=== PATIENT | male | born 1960 | race Caucasian/White ===

== ENCOUNTER 2019-08-25 10:12 | Outpatient (CLI) | payer OTHER, SELFPAY ==
--- NOTE | ~2019-08-25 | CT_ITS ---
EXAMINATION: CT lumbar spine wo con DATE: 08/25/2019 10:43 INDICATION: Spondylolisthesis at L5-S1. TECHNIQUE: Computed tomography (CT) of the lumbar spine was performed without intravenous contrast. A utomated exposure control and iterative reconstruction technique were employed. The dose-length produ ct was 456.78 mGy-cm. COMPARISON: Lumbar spine radiograph 08/25/2019 FINDINGS: There is 8 degrees dextrocurvature of lumbar spine. There are chronic bilateral L5 pars def ects. There is 3 mm anterolisthesis of L5 on S1 and 3 mm retrolisthesis of L4 on L5. Vertebral body h eights are normal. There is mildly decreased disc height at L1-L2, moderately decreased disc height a t L4-L5, and severely decreased disc height at L5-S1. The following disc levels are specifically disc ussed: L1-L2: The disc is bulging. There is moderate right and mild left facet joint osteoarthritis. There i s no neural foraminal stenosis. There is mild central canal stenosis. L2-L3: The disc does not extend beyond the endplate margin. There is mild bilateral facet joint osteo arthritis. There is no neural foraminal stenosis. There is no central canal stenosis. L3-L4: The disc is bulging. There is mild bilateral facet joint osteoarthritis. There is mild bilater al neural foraminal stenosis. There is mild central canal stenosis. L4-L5: The disc is bulging. There is mild bilateral facet joint osteoarthritis. There is mild bilater al neural foraminal stenosis. There is mild central canal stenosis. L5-S1: The disc is bulging. There is mild bilateral facet joint osteoarthritis. There is moderate rig ht and mild left neural foraminal stenosis. There is mild central canal stenosis. IMPRESSION: 1. Severe lower lumbar spondylosis. 2. Chronic bilateral L5 pars defects with grade 1 anterolisthesis of L5 on S1. Reviewed, dictated and finalized at location A.
--- NOTE | ~2019-08-25 | XR_ITS ---
XR lumbar spine 2-3V 08/25/2019 10:35 Indication: Spondylolisthesis at L5-S1. Procedure: 3 views lumbar spine Comparison: 12/16/2018 Findings: There is disc narrowing at L4-5 and L5-S1. There is grade 1 spondylolisthesis at L5-S1 seco ndary to bilateral spondylolysis. There is dextroscoliosis centered at L3. Sacral foramen are symmetr ic. Impression: 1: Mild lumbar spondylosis with grade 1 spondylolisthesis at L5-S1. 2: Mild dextroscoliosis of the lumbar spine centered at L3. Reviewed, dictated and finalized at location A. Impression: 1: Mild lumbar spondylosis with grade 1 spondylolisthesis at L5-S1. 2: Mild dextroscoliosis of the lumbar spine centered at L3.
== END 2019-08-25 10:13 | disposition home or self-care (01) ==
LOC: ANHIMG 10:21
PROVIDERS: PCP Family Medicine; Visit Provider Neurological Surgery
DX: M43.17 Spondylolisthesis, lumbosacral region (principal); M47.896 Other spondylosis, lumbar region
CPT/HCPCS: 72100; 72131

== ENCOUNTER 2019-10-19 11:47 | Outpatient (CLI) | payer OTHER, SELFPAY ==
--- NOTE | ~2019-10-19 | US_ITS ---
EXAMINATION: US venous doppler [facility] EXAM DATE: 10/19/2019 12:27 INDICATION: Left calf pain. TECHNIQUE: Multiple grayscale, color flow and Doppler images of the left lower extremity deep venous system were obtained and reviewed. There is no prior study for comparison. FINDINGS: The left common femoral, femoral and profunda veins demonstrate normal color flow, respirat ory variation, augmentation and compressibility. Compressibility, color flow confirmed within the le ft popliteal, posterior tibial, peroneal, and greater saphenous veins. IMPRESSION: 1. No left lower extremity deep venous thrombosis. Reviewed, dictated and finalized at location A.
== END 2019-10-19 11:48 | disposition home or self-care (01) ==
LOC: ANHIMG 11:53
PROVIDERS: PCP Family Medicine; Visit Provider Neurological Surgery
DX: M79.662 Pain in left lower leg (principal)
CPT/HCPCS: 93971

== ENCOUNTER → 2019-10-26 07:51 | Outpatient (CLI) | payer OTHER, SELFPAY ==
--- NOTE | ~2019-10-26 | XR_ITS ---
XR lumbar spine 2-3V DATE: 10/26/2019 08:06 INDICATION: Spondylolisthesis at L5-S1 TECHNIQUE: Standing AP, lateral and coned lateral lumbosacral views COMPARISON: 08/25/2019 CT lumbar spine FINDINGS: Osteopenia. There is rotatory dextroscoliosis of the lower thoracic and lumbar spine. There is interval postoperative change including L5 laminectomy and posterior and interbody spinal fu emily at L5-S1. Again noted is grade 1 anterolisthesis at L5-S1 secondary to bilateral L5 pars interar ticularis defects documented 08/25/2019 CT lumbar spine examination. No interval fracture or bone destruction is noted compared to 08/25/2019. The sacroiliac joints are intact. IMPRESSION: Status post posterior and interbody spinal fusion at L5-S1 since 08/25/2019 Reviewed, dictated and finalized at location B.
== END ==
PROVIDERS: Visit Provider Neurological Surgery
DX: Z98.1 Arthrodesis status (principal)
CPT/HCPCS: 72100

== ENCOUNTER → 2019-11-20 10:32 | Outpatient (CLI) | payer OTHER, SELFPAY ==
--- NOTE | ~2019-11-20 | XR_ITS ---
EXAMINATION: XR shoulder LT min 2V DATE: 11/20/2019 11:24 INDICATION: Left shoulder swelling. TECHNIQUE: 4 views of left shoulder were obtained. COMPARISON: None. FINDINGS: Bone alignment is normal. No fracture. Glenohumeral joint is normal. There is moderate acro mioclavicular joint osteoarthritis. IMPRESSION: 1. Moderate left acromioclavicular joint osteoarthritis. Reviewed, dictated and finalized at location B.
--- NOTE | ~2019-11-20 | XR_ITS ---
XR_CERV2-3V_CR 11/20/2019 11:24 Indication: Neck pain Procedure: 3 views cervical spine Comparison: No prior studies for comparison. Findings: Normal cervical lordosis. No prevertebral soft tissue swelling. No fracture or traumatic ma lalignment. There is mild multilevel facet and uncinate hypertrophy. Lung apices are normal. Odontoid process not well visualized. Impression: 1: Mild cervical spondylosis. Reviewed, dictated and finalized at location A. Impression: 1: Mild cervical spondylosis.
== END ==
PROVIDERS: PCP Family Medicine; Visit Provider Family Medicine
DX: M79.89 Other specified soft tissue disorders (principal); M19.012 Primary osteoarthritis, left shoulder; M47.892 Other spondylosis, cervical region
CPT/HCPCS: 72040; 73030

== ENCOUNTER 2019-11-25 06:44 | Outpatient (RCR) | payer OTHER, SELFPAY ==
[2019-11-24 07:50] LABS: Hematocrit 22.2 % (42.0-52.0)
[2019-11-25] VITALS (9 sets, daily range): BP systolic 109–127; BP diastolic 65–81; PULSE 71–80; RESP 14–18; TEMP 36.1–36.6; O2SAT 99–100
== END 2020-02-22 23:59 | disposition home or self-care (01) ==
LOC: ANHCPCTRAN 06:44
PROVIDERS: PCP Family Medicine; Visit Provider Physician Assistant
DX: D64.9 Anemia, unspecified (principal)
CPT/HCPCS: 36415; 36430; 85014; 85018; 86850; 86900; 86901; 86920; P9016

== ENCOUNTER → 2019-11-27 09:24 | Outpatient (CLI) | payer OTHER, SELFPAY ==
--- NOTE | ~2019-11-27 | XR_ITS ---
EXAMINATION: XR lumbar spine 2-3V DATE: 11/27/2019 10:00 INDICATION: Lumbar spinal fusion TECHNIQUE: Anteroposterior and lateral views of the lumbar spine, and cone-down lateral view of the l umbosacral junction were obtained. COMPARISON: 10/26/2019 FINDINGS: Again noted are changes of anterior and posterior fusion at L5-S1. Vertebral body alignment is normal. There is mild loss of intervertebral disc space height at L4-5. The vertebral body height s are maintained. Small degenerative osteophytes project from the anterior endplates of multiple vert ebral bodies. IMPRESSION: 1. Changes of anterior and posterior fusion and mild lumbar spondylosis without acute findings or sig nificant interval change. Reviewed, dictated and finalized at location A. IMPRESSION: 1. Changes of anterior and posterior fusion and mild lumbar spondylosis without acute findings or significant interval change.
== END ==
PROVIDERS: PCP Family Medicine; Visit Provider Neurological Surgery
DX: Z98.1 Arthrodesis status (principal)
CPT/HCPCS: 72100

== ENCOUNTER 2019-12-24 13:49 | Outpatient (CLI) | payer OTHER, SELFPAY ==
[2019-12-24 14:07] LABS: Basophils Absolute Auto 0.1 K/mm3 (0.0-0.1); Basophils Percent Auto 0.5 % (0.2-1.2); Eosinophils Absolute Auto 0.1 K/mm3 (0-0.3); Eosinophils Percent Auto 1.2 % (0-4.4); Hematocrit 32.8 % (42.0-52.0); Hemoglobin 10.4 g/dL (14.0-18.0); Immature Granulocyte Absolute 0.07 K/mm3 (0.00-0.031); Immature Granulocyte Percent A 0.6 % (0-0.5); Immature Reticulocyte Fraction 24.6 % (3.0-15.9); Lymphocytes Absolute Auto 2.47 K/mm3 (0.9-3.2); Mean Corpuscular HGB Conc 31.7 g/dl (32-36); Mean Corpuscular Hemoglobin 27.7 pg (26-34); Mean Corpuscular Volume 87.5 fl (80-100); Mean Platelet Volume 8.5 fl (7.4-10.4); Monocytes Absolute Auto 1.4 K/mm3 (0.1-0.6); Monocytes Percent Auto 12.7 % (2.6-8.5); Neutrophils Absolute Auto 7.1 K/mm3 (1.3-6.7); Platelet Count Result 424 k/mm3 (150-375); Red Blood Count 3.75 M/mm3 (4.6-6.20); Red Cell Distribution Width 18.7 % (11.5-14.5); Reticulocyte Hemoglobin Conten 30.7 pg (28.2-35.7); Reticulocyte Percent 2.06 % (0.7-4.3); Reticulocytes Absolute 0.08 B/L (32.2-175.7); White Blood Count 11.2 K/mm3 (4.5-10.0)
[2019-12-24 16:55] LABS: Iron 46 ug/dL (49-181)
[2019-12-24 16:57] LABS: Alanine Aminotransferase 20 U/L (4-50); Albumin Level 4.3 g/dL (3.5-5.1); Alkaline Phosphatase 91 U/L (38-126); Anion Gap 7 mmol/L (8-16); Aspartate Amino Transferase 33 U/L (17-59); Bilirubin,Total 0.5 mg/dL (0.2-1.3); Blood Urea Nitrogen 8 mg/dL (9-20); Calcium 9.7 mg/dL (8.4-10.2); Carbon Dioxide 27 mmol/L (22-30); Chloride 95 mmol/L (98-107); Estimated Glomerular Filt Rate > 60; Glucose 91 mg/dL (75-110); Potassium 4.7 mmol/L (3.4-5.0); Sodium 129 mmol/L (137-145)
[2019-12-24 17:05] LABS: Percent Iron Saturation 10 % (20-50)
[2019-12-24 18:02] LABS: Folic Acid 18.6 ng/mL (2.76->20)
== END 2019-12-24 13:50 | disposition home or self-care (01) ==
LOC: ANHLAB 13:51
PROVIDERS: PCP Family Medicine; Visit Provider Internal Medicine Hematology & Oncology
DX: D64.9 Anemia, unspecified (principal)
CPT/HCPCS: 36415; 80053; 82607; 82728; 82746; 83540; 83550; 85025; 85046

== ENCOUNTER → 2020-02-05 10:35 | Outpatient (CLI) | payer OTHER, SELFPAY ==
--- NOTE | ~2020-02-05 | XR_ITS ---
XR lumbar spine 2-3V DATE: 02/05/2020 11:49 INDICATION: Post lumbar spinal fusion TECHNIQUE: AP, lateral, coned lateral lumbosacral views COMPARISON: 11/2019 lumbar spine 8. 5 05/2019 lumbar spine FINDINGS: Status post L5 laminectomy and posterior and interbody spinal fusion at L5-S1. Stable mild grade 1 anterolisthesis at L5-S1. There is mild dextroscoliosis of the lumbar spine. There is osteopenia. No fracture or bone destruction of the lumbar spine is evident. The included lower thoracic and lumba r pedicles are intact. There is moderately prominent degenerative disc disease at L1-2 and L4-5, mild degenerative disc dise ase at L2-3, L3-4.. The sacroiliac joints appear normal. IMPRESSION: L5 laminectomy. 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 Posterior and interbody spinal fusion at L5-S1 Stable grade 1 anterolisthesis at L5-S1 Moderate degenerative disc disease at L1-2 and L4-5, mild degenerative disc dis ease at the remaining lumbar interspaces Osteopenia
== END ==
PROVIDERS: Visit Provider Neurological Surgery
DX: Z98.1 Arthrodesis status (principal); M85.88 Other specified disorders of bone density and structure, other site; M51.36 Other intervertebral disc degeneration, lumbar region
CPT/HCPCS: 72100

== ENCOUNTER 2020-03-12 01:51 | Outpatient (CLI) | payer OTHER, SELFPAY ==
[2020-03-12 18:58] LABS: SARS-CoV-2 RNA PCR Negative
== END 2020-03-12 01:52 | disposition home or self-care (01) ==
LOC: ANHCOVIDDT 01:51
PROVIDERS: PCP Physician Assistant; Visit Provider Internal Medicine Gastroenterology
DX: Z01.818 Encounter for other preprocedural examination (principal); Z20.828 Contact with and (suspected) exposure to other viral communicable diseases
CPT/HCPCS: 87635; C9803; U0003

== ENCOUNTER 2020-03-15 01:51 | Day surgery (SDC) | payer OTHER, SELFPAY ==
[2020-03-10 08:46] VITALS: BMI 26.6
[2020-03-15 11:51] VITALS: BP 143/89; PULSE 99; RESP 18; TEMP 37.1; O2SAT 100
--- NOTE | 2020-03-15 11:55 | WPDANESEPPF ---
Anes - Initial Pre Proc Eval Procedure: Operation Date: 03/15/20 13:45 Proposed Procedures p Esophagogastroduodenoscopy & Colonoscopy - Jeronimo Mistry MD Date/Time: 03/15/20 11:55 Surgeon: Jeronimo Mistry MD Pre Op Diagnosis: Anemia/ Dark Stools Patient Data Age: 60 Gender: M Height: 1.75 m Weight: 82 kg Allergies Allergy/AdvReac Type Severity Reaction Status Date / Time No Known Drug Allergies Allergy Unknown none Verified 03/15/20 11:50 peanut Allergy Unknown Swelling Verified 03/15/20 11:50 of Lip/Tongue/Throat Home Medications Medication Instructions Recorded Confirmed Type montelukast 10 mg tablet 10 mg PO DAILY #30 tablet 05/07/19 03/10/20 Rx amlodipine 5 mg tablet 5 mg PO DAILY #90 tablet 12/11/19 03/10/20 Rx allopurinol 100 mg tablet 100 mg PO DAILY #90 tablet 12/24/19 03/10/20 Rx sodium,potassium,mag sulfates 17.5 354 ml PO .COMPLEX #354 ml 02/17/20 03/10/20 Rx gram-3.13 gram-1.6 gram oral soln Patient hx anesthesia problems: none Family hx anesthesia problems: none PMFSH Past Medical History Medical History (Updated 03/14/20 @ 09:58 by Nael Garcia DO) Chronic right-sided low back pain with right-sided sciatica Essential hypertension Macrocytic anemia Psoriasis Right knee pain Surgical History Surgical History (Updated 03/14/20 @ 09:58 by Nael Garcia DO) History of spinal surgery Family History Family History Father Hypertension Social History Social History Social History: Smoking packs per day: 1 Smoking cigarettes per day: 20.0 Years smoked: 40 Smoking pack-years: 40.00 Smoking status: Current every day smoker Tobacco type: cigarettes Second hand tobacco smoke exposure: Yes Alcohol intake: current Drinks per week: 21 Substance use: never Substance use type: does not use Living arrangements: alone Gender identity (if verbalized by the patient): Male Spiritual care concerns: No Anes - Eval Final PreProcedure Day of Procedure 03/15/20 11:55 Patient weight: overweight Heart: regular rate and rhythm Lungs: clear to auscultation and normal air movement Airway: Mallampati scale class III Neurological: alert and oriented Last oral intake: >/= 8 hours ASA classification: III Emergent: no Anesthetic plan: proceed Anesthesia type and monitoring: general GIVS and standard monitoring Informed Consent: The patient's anesthetic plan and its attendant risks and benefits were discussed with the patient/family/POA. Questions were solicited and answers provided to the satisfaction of the patient/family/POA.
[2020-03-15] MEDS: LACTATED RINGERS 1,000 ML 150 ML IV CONT (11:58)
--- NOTE | 2020-03-15 12:33 | PM.HPGS ---
History of Present Illness History of Present Illness Consent: Risks, benefits, and alternatives have been discussed and questions answered. Patient agrees to proceed with procedure. Chief complaint: Anemia/ Dark Stools Narrative: Noble Howard is a 60 year old male with melena and NILA after taking pain meds because back surgery few months ago, last colonoscopy 10 years ago. Review of Systems Constitutional: Constitutional: Denies headache(s) and Denies weakness Eyes: Eyes: Denies blurry vision ENT: Reports Normal hearing present, Denies headache(s) and Denies neck pain Cardiovascular: Cardiovascular: Denies chest pain and Denies dyspnea Respiratory: Respiratory: Denies dyspnea Gastrointestinal: Gastrointestinal: Reports no additional gastrointestinal complaints Genitourinary: Genitourinary: Denies dysuria Musculoskeletal: Musculoskeletal: Denies neck pain Integumentary/Breasts: Skin/Breast: Denies dry skin Neurologic: Reports Normal hearing present, Denies headache(s) and Denies weakness Psychiatric: Psychiatric: Denies anxiety Endocrine: Endocrine: Denies change in body appearance Hematologic/Lymphatic: Hematologic/Lymphatic: Denies easy bleeding Allergic/Immunologic: Allergic/Immunologic: Denies urticaria PMFSH Past Medical History Medical History (Updated 03/15/20 @ 12:34 by Jeronimo Mistry MD) Chronic right-sided low back pain with right-sided sciatica Essential hypertension Macrocytic anemia Melena Psoriasis Right knee pain Surgical History Surgical History (Updated 03/14/20 @ 09:58 by Nael Garcia DO) History of spinal surgery Family History Family History Father Hypertension Social History Social History Social History: Smoking packs per day: 1 Smoking cigarettes per day: 20.0 Years smoked: 40 Smoking pack-years: 40.00 Smoking status: Current every day smoker Tobacco type: cigarettes Second hand tobacco smoke exposure: Yes Alcohol intake: current Drinks per week: 21 Substance use: never Substance use type: does not use Living arrangements: alone Gender identity (if verbalized by the patient): Male Spiritual care concerns: No Meds Home Medications and Allergies Home Medications Medication Instructions Recorded Confirmed Type montelukast 10 mg tablet 10 mg PO DAILY #30 tablet 05/07/19 03/10/20 Rx amlodipine 5 mg tablet 5 mg PO DAILY #90 tablet 12/11/19 03/10/20 Rx allopurinol 100 mg tablet 100 mg PO DAILY #90 tablet 12/24/19 03/10/20 Rx sodium,potassium,mag sulfates 17.5 354 ml PO .COMPLEX #354 ml 02/17/20 03/10/20 Rx gram-3.13 gram-1.6 gram oral soln Allergies Allergy/AdvReac Type Severity Reaction Status Date / Time No Known Drug Allergies Allergy Unknown none Verified 03/15/20 11:50 peanut Allergy Unknown Swelling Verified 03/15/20 11:50 of Lip/Tongue/Throat Vital Signs Vital Signs - 24 hr 03/15/20 11:51 Temperature 98.8 F Pulse Rate 99 Respiratory Rate 18 Blood Pressure 143/89 H Pulse Oximetry 100 Exam Const: General: comfortable and no acute distress HENMT: General nose exam: Normal nares present Eyes: General: appearance normal, both eyes and all related structures Neck: Neck: no JVD Resp: Auscultation: clear to auscultation bilaterally Cardio: Rate: regular rate Rhythm: regular rhythm GI: Inspection: non-distended GI Palp: Yes Soft to palpation Skin: General skin exam: normal color Neuro: General: gait normal Speech: normal speech Extrem: General: normal to inspection Psych: Mental Status: mental status grossly normal Assessment and Plan Assessment and plan (1) Melena: Code(s): K92.1 - Melena Status: Acute Assessment and Plan: egd with bx (2) Anemia: Code(s): D64.9 - Anemia, unspecified Status
--- NOTE | 2020-03-15 13:09 | SUR.OPER ---
EGD START 1245, END 1254 COLONOSCOPY START 1258, END 1306
[2020-03-15 13:10] VITALS: BP 113/79; PULSE 76; RESP 16; O2SAT 98
[2020-03-15 13:20] VITALS: BP 129/87; PULSE 74; RESP 18; O2SAT 98
[2020-03-15 13:30] VITALS: BP 132/85; PULSE 73; RESP 16; O2SAT 99
== END 2020-03-15 13:54 | disposition home or self-care (01) ==
PROVIDERS: PCP Physician Assistant; Visit Provider Internal Medicine Gastroenterology
PROC: 0DJ08ZZ Inspection of Upper Intestinal Tract, Via Natural or Artificial Opening Endoscopic (ICD-10-PCS; CPT 43235; principal; 2020-03-15 13:45)
DX: D50.0 Iron deficiency anemia secondary to blood loss (chronic) (principal); K31.5 Obstruction of duodenum; K29.70 Gastritis, unspecified, without bleeding; K64.8 Other hemorrhoids; K92.1 Melena; I10 Essential (primary) hypertension; D53.9 Nutritional anemia, unspecified; L40.9 Psoriasis, unspecified; F17.210 Nicotine dependence, cigarettes, uncomplicated
CPT/HCPCS: 43239; 43245; 45378; 88305; C1726; J2704; J7120

== ENCOUNTER → 2020-05-18 08:54 | Outpatient (CLI) | payer OTHER, SELFPAY ==
--- NOTE | ~2020-05-18 | MR_ITS ---
EXAMINATION: MR lumbar spine wo/w con EXAM DATE: 05/18/2020 09:48 INDICATION: History lumbar fusion, radiculopathy. Low back and right leg pain. TECHNIQUE: Multi-sequential, multiplanar MR images of the lumbar spine were obtained without contrast . Sagittal T1, T2, T2 fat saturation images. Axial T2 weighted images. Axial T1 weighted sequence. Patient was then injected with 15 mL Multihance intravenous contrast and reimaged. Postcontrast axi al and sagittal T1-weighted fat saturation sequences were obtained. Comparison is made to prior exami nation from 01/27/2019. FINDINGS: Interval posterior, interbody fusion L5-S1 and grade 1 anterolisthesis position. There is m ild to moderate loss of the L4-5 disc height with 2 mm retrolisthesis. Mild disc disease other thorac olumbar levels. There are scattered focal signal abnormalities consistent with hemangiomata, otherwis e without focal suspicious marrow signal abnormalities. The conus medullaris terminates at the L1/2 l evel and has normal signal intensity and morphology. There are no areas of abnormal enhancement on t he post contrast images. Level by level evaluation: T12-L1: Disc does not extend beyond the endplate margin. Facet arthropathy: Mild. Neural foraminal stenosis: No stenosis. Central canal stenosis: No stenosis. L1-L2: There is a mild diffuse disc bulge. Facet arthropathy: Mild. Neural foraminal stenosis: No stenosis. Central canal stenosis: No stenosis. L2-L3: There is a mild diffuse disc bulge. Facet arthropathy: Mild. Neural foraminal stenosis: No stenosis. Central canal stenosis: No stenosis. L3-L4: There is a mild diffuse disc bulge. Facet arthropathy: Mild. Neural foraminal stenosis: No stenosis. Central canal stenosis: No stenosis. L4-L5: There is a mild to moderate diffuse disc bulge. Facet arthropathy: Mild to moderate. Neural foraminal stenosis: Mild to moderate bilateral. Central canal stenosis: No stenosis. L5-S1: This level is fused. Facet arthropathy: Poorly visualized. Neural foraminal stenosis: Moderate to severe right, moderate left. Central canal stenosis: Posterior decompression. Aside from the fusion, no appreciable interval change in exam. IMPRESSION: 1. Interval L5-S1 fusion. 2. L5-S1 Moderate to severe right, moderate left neural foraminal stenosis. 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
[2020-05-18 09:21] LABS: Estimated Glomerular Filt Rate > 60
== END ==
PROVIDERS: PCP Family Medicine; Visit Provider Nurse Practitioner Family
DX: Z98.1 Arthrodesis status (principal)
CPT/HCPCS: 72158; A9577

== ENCOUNTER → 2020-06-15 08:37 | Outpatient (CLI) | payer OTHER, SELFPAY ==
--- NOTE | ~2020-06-15 | XR_ITS ---
XR lumbar spine min 4V 06/15/2020 09:07 Indication: Spondylolisthesis at L5-S1 Procedure: 5 views of the lumbar spine Comparison: Comparison to multiple prior studies sequentially, with oldest reviewed study dated 04/2019. Findings: Status post posterior fusion at L5-S1. There is a prosthetic disc device located along the anterior aspect of the disc space, unchanged from prior examinations. Pedicle screws appear intact. T here is disc narrowing at L4-5 and L5-S1 without significant change. There is grade 1 spondylolisthes is at L5-S1, stable there are laminectomy changes at L5. Mild dextrocurvature of the lumbar spine. Os teopenia. Sacroiliac joints are symmetric. Impression: 1: Stable appearance to lumbar spine. Stable surgical changes with fusion at L5-S1. No significant ch elaine to alignment with persistent grade 1 spondylolisthesis at L5-S1. Reviewed, dictated and finalized at location A. Impression: 1: Stable appearance to lumbar spine. Stable surgical changes with fusion at L5 -S1. No significant change to alignment with persistent grade 1 spondylolisthes is at L5-S1.
--- NOTE | ~2020-06-15 | CT_ITS ---
EXAMINATION: CT lumbar spine wo [facility] EXAM DATE: 06/15/2020 09:07 INDICATION: Spondylolisthesis L5-S1. Low back and right leg pain. Status post lumbar spine fusion 09/23. TECHNIQUE: Spiral CT of the lumbar spine was performed without contrast. Axial, coronal and sagittal images were reviewed. The dose-length product (DLP) for this examination was 703.80 mGy-cm. The e xposure was tailored according to patient size (auto mA exposure control), and iterative reconstructi on (ASIR) was used as additional dose reduction technique. Comparison is made to prior examination fr 08/25/2019. FINDINGS: There is L5-S1 posterior and interbody fusion, in grade 1 anterolisthesis, about 4 mm. Mil d to moderate disc disease at L4-5 with 2 mm retrolisthesis. Mild disc disease at the other lumbar le vels. L5 laminectomies. No evidence of lucency surrounding the screws. No solid bone bridging of the interbody device. There are no acute fractures identified. Paraspinal soft tissue is unremarkable. In cidental note made of mild sigmoid diverticulosis. Mild lumbar dextroscoliosis. Level by level evaluation: T12-L1: There is a minimal diffuse disc bulge. Facet arthropathy: None. Neural foraminal stenosis: No stenosis. Central canal stenosis: No stenosis. L1-L2: There is a mild diffuse disc bulge. Facet arthropathy: Mild. Neural foraminal stenosis: No stenosis. Central canal stenosis: Minimal. L2-L3: There is a mild diffuse disc bulge. Facet arthropathy: Mild. Neural foraminal stenosis: No stenosis. Central canal stenosis: Minimal. L3-L4: There is a mild diffuse disc bulge. Facet arthropathy: Mild to moderate. Neural foraminal stenosis: Mild bilateral. Central canal stenosis: Mild. L4-L5: Probably mild to moderate disc bulge. Facet arthropathy: Mild to moderate. Neural foraminal stenosis: Moderate right, mild to moderate left. Central canal stenosis: No stenosis. L5-S1: This level is fused. Facet arthropathy: Facetectomies. Neural foraminal stenosis: Moderate to severe bilateral, right greater than left. Central canal stenosis: Posterior decompression. The fusion hardware, L5 laminectomies and facetectomies new compared to prior study. Grade 1 anteroli sthesis appears unchanged. Difficult appreciate any significant interval change in the other lumbar f indings reported above. IMPRESSION: Intact L5-S1 fusion and grade 1 anterolisthesis. Moderate to severe bilateral neural fora yi stenosis at this level. Reviewed, dictated and finalized at location A. IMPRESSION: Intact L5-S1 fusion and grade 1 anterolisthesis. Moderate to severe bilateral neural foraminal stenosis at this level.
== END ==
PROVIDERS: PCP Family Medicine; Visit Provider Neurological Surgery
DX: M43.17 Spondylolisthesis, lumbosacral region (principal); Z98.1 Arthrodesis status
CPT/HCPCS: 72110; 72131

== ENCOUNTER → 2022-01-09 08:10 | Outpatient (CLI) | payer OTHER, SELFPAY ==
--- NOTE | ~2022-01-09 | CT_ITS ---
EXAMINATION: CT lung screening DATE: 01/09/2022 08:25 INDICATION: Personal history of nicotine dependence TECHNIQUE: Computed tomography (CT) of the chest was performed without intravenous contrast. Addition al 3D reconstructions utilizing coronal maximum intensity projection (MIP) were performed. Automated exposure control and iterative reconstruction technique were employed. The dose-length product was 73 .29 mGy-cm. COMPARISON: 04/12/2019 FINDINGS: A few <4 mm pleural-based nodules at the dependent apices of the lungs likely related to biapical ple ural-parenchymal scarring. Small calcified left lower lobe nodule consistent with old granulomatous d isease. No pneumonia, pulmonary edema or pleural effusion. Heart size is normal. Atherosclerotic rahel nary artery calcific lesion. No pericardial effusion. Thoracic aorta is normal in caliber. No patholo gically enlarged thoracic lymphadenopathy. 1.3 cm low-attenuation cyst at the upper pole of the left kidney. Moderate lower cervical and mild thoracic spondylosis. IMPRESSION: 1. . Lung-RADS category 2: Benign appearance or behavior. Continue annual screening with noncontrast low-dose chest CT in 12 months. Reviewed, dictated and finalized at location A. IMPRESSION: 1. . Lung-RADS category 2: Benign appearance or behavior. Continue annual scree luiz with noncontrast low-dose chest CT in 12 months.
== END ==
PROVIDERS: PCP Family Medicine; Visit Provider Nurse Practitioner Family
DX: Z12.2 Encounter for screening for malignant neoplasm of respiratory organs (principal); Z87.891 Personal history of nicotine dependence
CPT/HCPCS: 71271

== ENCOUNTER 2023-10-28 01:55 | Emergency (ER) | payer OTHER, SELFPAY ==
--- NOTE | ~2023-10-28 | CT_ITS ---
Non-contrast Head CT History: Head injury Technique: Axial non-contrast imaging of the brain was performed. Dose reduction technique was used on this scan by utilizing automated exposure control and iterative reconstruction technique. The dose -length product (DLP) was 681.00 mGy-cm. Findings: There is no evidence of intracranial hemorrhage, mass lesion, or acute infarct. Brain par enchyma appears normal. The ventricles and subarachnoid spaces are normal in size. The calvarium ap pears normal. The visualized paranasal sinuses and mastoid air cells are clear. Impression: No significant abnormality seen. Reviewed, dictated and finalized at location . Impression: No significant abnormality seen.
--- NOTE | ~2023-10-28 | CT_ITS ---
Noncontrast CT scan of the cervical spine Technique: Multiple contiguous axial [address] images of the cervical spine were obtained and rec onstructed in 2D sagittal and coronal planes on the acquisition scanner. Dose reduction technique was used on this scan by utilizing automated exposure control, adjustment of the mA and/or kV according to patient size. The dose-length product (DLP) was 391.46 mGy-cm. Clinical History: Pain Findings: No fractures or dislocations. There is moderate to advanced degenerative disc narrowing at C4-C5, C5-C6, and C6-C7. There is left neural foraminal narrowing at C3-C4. There is bilateral neura l foraminal narrowing at C4-C5, C5-C6, and probably C6-C7. No prevertebral soft tissue swelling. Impression: No fracture or subluxation of the cervical spine. Degenerative spondylosis, as above. Reviewed, dictated and finalized at [facility]. Impression: No fracture or subluxation of the cervical spine. Degenerative spondylosis, as above.
[2023-10-28 02:00] VITALS: BP 130/80; PULSE 78; RESP 16; TEMP 36.6; O2SAT 99
--- NOTE | 2023-10-28 03:10 | ED.GENADULT ---
HPI - General Adult General Chief complaint: Fall Stated complaint: Fall, lac, etoh Time Seen by Provider: 10/28/23 03:03 History of Present Illness HPI narrative: patient's 7-year-old gentleman who presents emergency department with chief complaint of scalp laceration. Patient reports around 1:00 to 2:00 today a.m. hit his head on a cabinet the patient reports he has drank about 8 beers today he has been taking some naproxen. The patient states it has continued to bleed and could get the area to stop bleeding. The patient reports no loss of consciousness. Related Data Home Medications Medication Instructions Recorded Confirmed olopatadine 0.2 % eye drops 1 drp EACH EYE DAILY 07/13/20 07/04/22 Allergies Allergy/AdvReac Type Severity Reaction Status Date / Time No Known Drug Allergies Allergy Unknown none Verified 10/28/23 02:04 peanut Allergy Unknown Swelling Verified 10/28/23 02:04 of Lip/Tongue/Throat Review of Systems Review of Systems: A 10 system review of systems was completed on the patient and is negative except for what is stated in the HPI. Nursing and ancillary documentation was reviewed. [facility] Past Medical History Medical History Chronic right-sided low back pain with right-sided sciatica Essential hypertension Gastritis Macrocytic anemia Melena Psoriasis Right knee pain Surgical History Surgical History History of spinal surgery Family History Family History Father Hypertension Social History Social History Social History: Smoking packs per day: 1 Smoking cigarettes per day: 20.0 Years smoked: 40 Smoking pack-years: 40.00 Smoking status: Current every day smoker Tobacco type: cigarettes Second hand tobacco smoke exposure: Yes Alcohol intake: current Drinks per week: 24 Substance use: never Substance use type: does not use Living arrangements: alone Occupation/Education: occupation Gender identity (if verbalized by the patient): Male Spiritual care concerns: No Exam Narrative: GENERAL: Well-appearing, well-nourished, and in no acute distress. HEAD: Normocephalic, 1 cm laceration to the scalp. There is active bleeding. EYES: PERRLA and EOMI. ENT: Nares clear, no rhinorrhea or epistaxis. Mucous membranes moist. NECK: Supple. CHEST: Clear to auscultation. No respiratory distress. HEART: Regular rate and rhythm. No murmur heard. Normal peripheral pulses. ABDOMEN: Soft, nontender, nondistended, normal active bowel sounds. EXTREMITIES: Normal range of motion. No edema. SKIN: Warm, dry, no rash. NEURO: No focal deficits. Alert and oriented x3. PSYCH: Normal mood and affect. Course Vital Signs Vital signs: Vital Signs Temperature 36.6 C 10/28/23 02:00 Pulse Rate 78 10/28/23 02:00 Respiratory Rate 16 10/28/23 02:00 Blood Pressure 130/80 10/28/23 02:00 Pulse Oximetry 99 10/28/23 02:00 Oxygen Delivery Room Air 10/28/23 02:00 Temperature 36.6 C 10/28/23 02:00 Pulse Rate 103 H 10/28/23 03:29 Respiratory Rate 14 10/28/23 03:29 Blood Pressure 144/87 H 10/28/23 03:29 Pulse Oximetry 97 10/28/23 03:29 Oxygen Delivery Room Air 10/28/23 02:00 Procedures Laceration Laceration 1: Date: 10/28/23 Time: 03:12 Site: scalp Size (cm): 1 Description: linear Depth: simple, single layer Local Anesthetic: none ====== Skin Level ====== Skin layer closed with: tom Number of sutures: 2 ====== Subcutaneous Layer ====== ====== Muscle Layer ====== ====== Tendon Layer ====== Medical Decision Making MDM Narrative Medical decision making narrative:
[2023-10-28 03:29] VITALS: BP 144/87; PULSE 103; RESP 14; O2SAT 97
[2023-10-28] MEDS: TETANUS,DIPHTHERIA,AC PERTUSSIS ADULT (0.5 ML) BOOSTRIX IM (03:31)
[2023-10-28 03:38] LABS: Basophils Absolute Auto 0.1 K/mm3 (0.0-0.1); Basophils Percent Auto 0.5 % (0.2-1.2); Eosinophils Percent Auto 0.3 % (0-4.4); Hematocrit 36.1 % (42.0-52.0); Hemoglobin 12.5 g/dL (14.0-18.0); Immature Granulocyte Absolute 0.05 K/mm3 (0.00-0.031); Immature Granulocyte Percent A 0.5 % (0-0.5); Lymphocytes Percent Auto 21.6 % (18.3-44.2); Mean Corpuscular HGB Conc 34.6 g/dl (32-36); Mean Corpuscular Hemoglobin 36.4 pg (26-34); Mean Corpuscular Volume 105.2 fl (80-100); Mean Platelet Volume 8.3 fl (7.4-10.4); Monocytes Absolute Auto 1.2 K/mm3 (0.1-0.6); Monocytes Percent Auto 11.5 % (2.6-8.5); Neutrophils Percent Auto 65.6 % (45.5-73.1); Platelet Count Result 346 k/mm3 (150-375); Red Blood Count 3.43 M/mm3 (4.6-6.20); Red Cell Distribution Width 12.1 % (11.5-14.5); White Blood Count 10.7 K/mm3 (4.5-10.0)
[2023-10-28 03:46] LABS: Alanine Aminotransferase 17 U/L (6-50); Albumin Level 4.1 g/dL (3.5-5.1); Alkaline Phosphatase 89 U/L (38-126); Anion Gap 10 mmol/L (4-12); Aspartate Amino Transferase 30 U/L (17-59); Bilirubin,Total 0.5 mg/dL (0.2-1.3); Blood Urea Nitrogen 2 mg/dL (9-20); Calcium 8.7 mg/dL (8.4-10.2); Carbon Dioxide 21 mmol/L (22-30); Chloride 92 mmol/L (98-107); Estimated CRCL calculation 128 ml/min; Estimated Glomerular Filt Rate > 60; Glucose 91 mg/dL (65-110); Potassium 4.2 mmol/L (3.4-5.0); Sodium 123 mmol/L (137-145)
[2023-10-28 04:16] LABS: Anisocytosis 1+; Macrocytosis 1+ (NORMAL); Platelet Estimate Adequate (Adequate); Schistocytes None Seen
[2023-10-28 05:51] VITALS: BP 120/87; PULSE 91; RESP 14; O2SAT 98
== END 2023-10-28 06:17 | disposition home or self-care (01) ==
PROVIDERS: Emergency Provider Emergency Medicine; PCP Family Medicine
DX: S01.01XA Laceration without foreign body of scalp, initial encounter (principal); F17.210 Nicotine dependence, cigarettes, uncomplicated; I10 Essential (primary) hypertension; D64.9 Anemia, unspecified; W22.09XA Striking against other stationary object, initial encounter; Z23 Encounter for immunization
CPT/HCPCS: 12001; 36415; 70450; 72125; 80053; 85025; 90471; 90715; 99284